=== PATIENT | male | born 1950 | race African-American/Black ===

== ENCOUNTER 2020-10-19 11:23 | Emergency (ER) | payer MEDICAID ==
[~2020-10-19] VITALS: Ht 177.8 cm; Wt 79.0 kg
[2020-10-19 11:26] VITALS: BP 130/97
== END 2020-10-19 11:53 | disposition left against medical advice (07) ==
LOC: ER 11:23
DX: Z53.21 Procedure and treatment not carried out due to patient leaving prior to being seen by health care provider (principal)